=== PATIENT | female | born 1960 | race Caucasian/White ===

== ENCOUNTER → 2017-07-14 | Outpatient (CLI) | payer BC, OTHER ==
--- NOTE | 2017-07-15 10:44 | MM ---
Reason for exam: screening (asymptomatic). Last mammogram was performed 1 year and 7 months ago. History: Patient is postmenopausal. Family history of breast cancer in paternal aunt at age 60. Physical Findings: A clinical breast exam by your physician is recommended on an annual basis and results should be correlated with mammographic findings. MG 3D Screening Mammo W/Cad Bilateral CC and MLO view(s) were taken. Prior study comparison: December 20, 2015, bilateral MG 3d screening mammo w/cad. October 21, 2014, bilateral MG screening mammo w CAD. There are scattered fibroglandular densities. No significant changes when compared with prior studies. ASSESSMENT: Negative, BI-RAD 1 RECOMMENDATION: Routine screening mammogram of both breasts in 1 year.
== END | disposition home or self-care (01) ==
LOC: RADMAMWWP 14:41
PROVIDERS: ATTEND Family Medicine
DX: Z12.31 Encounter for screening mammogram for malignant neoplasm of breast (principal)
CPT/HCPCS: 77063; 77067

== ENCOUNTER → 2020-04-27 | Outpatient (CLI) | payer BC, OTHER ==
--- NOTE | 2020-04-28 15:00 | MM ---
Reason for exam: screening (asymptomatic). Last mammogram was performed 2 years and 9 months ago. History: Patient is postmenopausal. Family history of breast cancer in paternal aunt at age 60. Physical Findings: A clinical breast exam by your physician is recommended on an annual basis and results should be correlated with mammographic findings. MG 3D Screening Mammo W/Cad Bilateral CC and MLO view(s) were taken. Prior study comparison: July 14, 2017, bilateral MG 3d screening mammo w/cad. December 20, 2015, bilateral MG 3d screening mammo w/cad. There are scattered fibroglandular densities. No significant changes when compared with prior studies. ASSESSMENT: Benign, BI-RAD 2 RECOMMENDATION: Routine screening mammogram of both breasts in 1 year.
== END | disposition home or self-care (01) ==
LOC: RADMAMWWP 09:42
PROVIDERS: ATTEND Family Medicine
DX: Z12.31 Encounter for screening mammogram for malignant neoplasm of breast (principal)
CPT/HCPCS: 77063; 77067

== ENCOUNTER 2020-05-03 07:37 | Day surgery (SDC) | payer BC, OTHER ==
[2020-04-28 15:05] VITALS: BMI 27.1
[~2020-05-03 07:37] MED LIST: LACTATED RINGERS 1,000 ML IV SCH; LIDOCAINE 1% (10MG/ML) FOR IV START INTRADERMA PRN
[2020-05-03] MEDS ORDERED: LACTATED RINGERS 1,000 ML IV ONE (08:09)
[2020-05-03 08:14] VITALS: TEMP 97.3
[2020-05-03 08:22] LABS: Glucose,Whole Blood 142 mg/dL (75-99)
[2020-05-03] MEDS ORDERED: PROPOFOL 10 MG/ML 20 ML VIAL IV ONE (09:11)
[2020-05-03] MEDS ORDERED: LIDOCAINE 1% INJ 10MG/ML (20 ML MDV) ONE (09:11)
--- NOTE | 2020-05-03 09:11 | P.GSHP ---
History of Present Illness H&P Date: 05/03/20 CHIEF COMPLAINT: Colon screen HISTORY OF PRESENT ILLNESS: The patient is a 60-year-old female who presents for colon screen. Lower endoscopy was offered for further evaluation and management. PAST MEDICAL HISTORY: Please see list. PAST SURGICAL HISTORY: Please see list. MEDICATIONS: Please see list. ALLERGIES: Please see list. SOCIAL HISTORY: No illicit drug use FAMILY HISTORY: No reports of Crohn disease or ulcerative colitis. REVIEW OF ORGAN SYSTEMS: CONSTITUTIONAL: No reports of fevers or chills. PHYSICAL EXAM: VITAL SIGNS: Stable GENERAL: Well-developed pleasant in no acute distress. HEENT: No scleral icterus. Extraocular movements grossly intact. Moist buccal mucosa. NECK: Supple without lymphadenopathy. CHEST: Unlabored respirations. Equal bilateral excursions. CARDIOVASCULAR: Regular rate and rhythm. Distal 2+ pulses. ABDOMEN: Soft, nontender, nondistended. MUSCULOSKELETAL: No clubbing, cyanosis, or edema. ASSESSMENT: 1. Colon screen. PLAN: 1. Recommend proceeding with a lower endoscopy Past Medical History Past Medical History: Diabetes Mellitus Additional Past Medical History / Comment(s): Seasonal Allergies. Had a Shingles Vaccine 04/27/20. History of Any Multi-Drug Resistant Organisms: None Reported Past Surgical History: Hysterectomy Additional Past Surgical History / Comment(s): Buionectomy, right hand joint surgery, colonoscopy with polypectomy. Past Anesthesia/Blood Transfusion Reactions: No Reported Reaction Past Psychological History: No Psychological Hx Reported Smoking Status: Former smoker Past Alcohol Use History: Occasional Additional Past Alcohol Use History / Comment(s): Smoked occasionally, socially in the . Past Drug Use History: None Reported - Past Family History Father Family Medical History: Cancer Additional Family Medical History / Comment(s): Lung Cancer. Medications and Allergies Home Medications Medication Instructions Recorded Confirmed Type Cholecalciferol (Vitamin D3) 250 mcg PO DAILY 04/28/20 04/28/20 History [Vitamin D3] EPINEPHrine (Auto Inject) [Epipen] 0.3 mg IM ONCE PRN 04/28/20 04/28/20 History Insulin Detemir [Levemir Flextouch] 20 units SQ HS 04/28/20 04/28/20 History Loratadine [Claritin] 10 mg PO DAILY PRN 04/28/20 04/28/20 History Pnv No.95/Ferrous Fum/Folic AC 1 each PO DAILY 04/28/20 04/28/20 History [ Multivitamin Tablet] Allergies Allergy/AdvReac Type Severity Reaction Status Date / Time latex Allergy Rash/Hives Verified 04/28/20 15:09 perfume AdvReac Nausea Verified 04/28/20 15:09 sulfite AdvReac Nausea Verified 04/28/20 15:09 venom-wasp [wasp venom] AdvReac Rash/Hives Verified 04/28/20 15:09 chemical sensitivity AdvReac Nausea Uncoded 04/28/20 15:09 Surgical - Exam Vital Signs Temp Pulse Resp BP Pulse Ox 97.3 F L 79 18 136/87 99 05/03/20 08:13 05/03/20 08:13 05/03/20 08:13 05/03/20 08:13 05/03/20 08:13 Results - Labs Abnormal Lab Results - Last 24 Hours (Table) 05/03/20 Range/Units 08:20 POC Glucose (mg/dL) 142 H (75-99) mg/dL
--- NOTE | 2020-05-03 09:40 | P.PCN ---
Date of Procedure: 05/03/20 Description of Procedure: PREOPERATIVE DIAGNOSIS: Personal history colon polyps Colonoscopy screening. POSTOPERATIVE DIAGNOSIS: Personal history colon polyps Colonoscopy screening. Diverticulosis, scattered. OPERATION: Colonoscopy to the cecum, ileocecal valve and appendiceal orifice. SURGEON: Sona Ray MD. ANESTHESIA: MAC. INDICATIONS: The patient is a 60-year-old female who presents for colonoscopy screening. Last colonoscopy 5 years ago. Benefits and risks were described and informed consent was obtained. DESCRIPTION OF PROCEDURE: The patient had undergone Suprep. She had been brought into the operating room and laid in the left lateral decubitus position. After adequate intravenous sedation, the rectum was examined with 2% lidocaine jelly. No external hemorrhoids were encountered. The rectal tone was within normal limits. No lesions were palpated in the rectal vault. An Olympus colonoscope was advanced until the cecum, ileocecal valve and appendiceal orifice were clearly viewed. The prep was excellent. Scattered diverticulosis was encountered. No colonic polyps were found. No evidence of focal colitis was found. Retroflexion of the scope demonstrated grade 1 internal hemorrhoids without active bleeding or inflammation. The colon was desufflated. The patient had tolerated the procedure well. Withdrawal time was over 6 minutes. FINDINGS: Aronchick preparation quality scale 1 (1-5) Internal hemorrhoids, grade 1 No external prolapsed hemorrhoids. No arteriovenous malformations. No adenomatous polyps. No focal colitis. Scattered sigmoid diverticulosis RECOMMENDATIONS: Lower endoscopy in 5 years, 2024 Plan - Discharge Summary Discharge Rx Participant: No New Discharge Prescriptions: Continue EPINEPHrine (Auto Inject) [Epipen] 0.3 mg IM ONCE PRN PRN Reason: Anaphylaxis Loratadine [Claritin] 10 mg PO DAILY PRN PRN Reason: Allergic Reaction Pnv No.95/Ferrous Fum/Folic AC [ Multivitamin Tablet] 1 each PO DAILY Insulin Detemir [Levemir Flextouch] 20 units SQ HS Cholecalciferol (Vitamin D3) [Vitamin D3] 250 mcg PO DAILY Discharge Medication List Cholecalciferol (Vitamin D3) [Vitamin D3] 250 mcg PO DAILY 04/28/20 [History] EPINEPHrine (Auto Inject) [Epipen] 0.3 mg IM ONCE PRN 04/28/20 [History] Insulin Detemir [Levemir Flextouch] 20 units SQ HS 04/28/20 [History] Loratadine [Claritin] 10 mg PO DAILY PRN 04/28/20 [History] Pnv No.95/Ferrous Fum/Folic AC [ Multivitamin Tablet] 1 each PO DAILY 04/28/20 [History] Follow up Appointment(s)/Referral(s): Sona Ray MD [STAFF PHYSICIAN] - As Needed Patient Instructions/Handouts: *[facility] - (Anesthesia) Endoscopy Discharge Instructions, Diverticulosis (GEN), Diverticulosis Diet (GEN), Colonoscopy (DC) Activity/Diet/Wound Care/Special Instructions: Repeat colonoscopy 5 years, 2024 Discharge Disposition: HOME SELF-CARE
[2020-05-03 09:50] VITALS: BP 126/80; PULSE 70; RESP 18
== END 2020-05-03 10:10 | disposition home or self-care (01) ==
LOC: ORWHC2ENDO 07:37
PROVIDERS: ATTEND Surgery Plastic and Reconstructive Surgery
DX: Z12.11 Encounter for screening for malignant neoplasm of colon (principal); K57.30 Diverticulosis of large intestine without perforation or abscess without bleeding; K64.0 First degree hemorrhoids; Z86.010 Personal history of colon polyps; Z79.4 Long term (current) use of insulin; E11.9 Type 2 diabetes mellitus without complications; Z90.710 Acquired absence of both cervix and uterus; Z98.890 Other specified postprocedural states; Z87.891 Personal history of nicotine dependence; Z91.040 Latex allergy status; Z91.048 Other nonmedicinal substance allergy status; Z80.1 Family history of malignant neoplasm of trachea, bronchus and lung
CPT/HCPCS: J2001; J2704; G0105

== ENCOUNTER 2021-02-07 13:56 | Emergency (ER) | payer BC, OTHER ==
[2021-02-07] MEDS ORDERED: diphenhydrAMINE 50 MG/ML 1 ML VIAL IVP STA (16:38)
[2021-02-07] MEDS ORDERED: methylPREDNISolone SOD SUCCI 125 MG/2 ML VIAL IV STA (16:38)
[2021-02-07] MEDS ORDERED: FAMOTIDINE 20 MG/2 ML VIAL IV STA (16:38)
[2021-02-07] MEDS ORDERED: SODIUM CHLORIDE 0.9% 500 ML 500 ML IV STA (16:38)
--- NOTE | 2021-02-07 17:02 | ED ---
Allergic Reaction HPI - General Chief complaint: Allergic Reaction Stated complaint: Allergic Reaction Time Seen by Provider: 02/07/21 16:24 Source: patient, RN notes reviewed Mode of arrival: ambulatory Limitations: no limitations - History of Present Illness Initial Comments: Patient is a 60-year-old female that presents to emergency department compla ining of possible ALLERGIC reaction. She notes she was weed whacking when she had a mushroom and Soma flung into her mouth. She noted that she started to feel little bit nauseous and lightheaded so she called her who states that the mushroom is bad. They came to the emergency room for possible allergic reaction. Patient was otherwise a well appearing 60-year-old female in no apparent distress or pain. She notes that most of her symptoms have since resolved prior to arrival. She denied any chest pain shortness of breath headache nausea vomiting diarrhea constipation fever fatigue chills. - Related Data Home Medications Medication Instructions Recorded Confirmed Cholecalciferol (Vitamin D3) 250 mcg PO DAILY 04/28/20 04/28/20 [Vitamin D3 (5000 Iu)] EPINEPHrine (Auto Inject) [Epipen] 0.3 mg IM ONCE PRN 04/28/20 04/28/20 Insulin Detemir [Levemir Flextouch 20 units SQ HS 04/28/20 04/28/20 Pen] Loratadine [Claritin] 10 mg PO DAILY PRN 04/28/20 04/28/20 Pnv No.95/Ferrous Fum/Folic AC 1 each PO DAILY 04/28/20 04/28/20 [ Multivitamin Tablet] Allergies Allergy/AdvReac Type Severity Reaction Status Date / Time latex Allergy Rash/Hives Verified 02/07/21 14:07 perfume AdvReac Nausea Verified 02/07/21 14:07 sulfite AdvReac Nausea Verified 02/07/21 14:07 venom-wasp [wasp venom] AdvReac Rash/Hives Verified 02/07/21 14:07 chemical sensitivity AdvReac Nausea Uncoded 02/07/21 14:07 Review of Systems ROS Statement: Those systems with pertinent positive or pertinent negative responses have been documented in the HPI. ROS Other: All systems not noted in ROS Statement are negative. Past Medical History Past Medical History: Diabetes Mellitus Additional Past Medical History / Comment(s): Seasonal Allergies. Had a Shingles Vaccine 12/17/20. History of Any Multi-Drug Resistant Organisms: None Reported Past Surgical History: Hysterectomy Additional Past Surgical History / Comment(s): Buionectomy, right hand joint surgery, colonoscopy with polypectomy. Past Anesthesia/Blood Transfusion Reactions: No Reported Reaction Past Psychological History: No Psychological Hx Reported Smoking Status: Former smoker Past Alcohol Use History: Occasional Past Drug Use History: None Reported - Past Family History Father Family Medical History: Cancer Additional Family Medical History / Comment(s): Lung Cancer. General Exam Limitations: no limitations General appearance: alert, in no apparent distress Head exam: Present: atraumatic, normocephalic, normal inspection Eye exam: Present: normal appearance, PERRL, EOMI. Absent: scleral icterus, conjunctival injection, periorbital swelling ENT exam: Present: normal exam, mucous membranes moist Neck exam: Present: normal inspection Respiratory exam: Present: normal lung sounds bilaterally. Absent: respiratory distress, wheezes, rales, rhonchi, stridor Cardiovascular Exam: Present: regular rate, normal rhythm, normal heart sounds. Absent: systolic murmur, diastolic murmur, rubs, gallop, clicks Extremities exam: Present: normal inspection, full ROM, normal capillary refill. Absent: tenderness, pedal edema, joint swelling, calf tenderness Neurological exam: Present: alert, oriented X3 Psychiatric exam: Present: normal affect, normal mood Skin exam: Present: warm, dry, intact, normal color. Absent: rash Course Vital Signs 02/07/21 14:08 Temperature 98.2 F Pulse Rate 102 H Respiratory 20 Rate Blood Pressure 122/74 O2 Sat by Pulse 99 Oximetry Medical Decision Making - Medical Decision Making 60-year-old female with possible ALLERGIC reaction. 500 mL of normal saline, 20 mg of Pepcid, 50 mg of Benadryl, 125 mg of Solu- Medrol ordered. Patient is okay with discharge home after medications. Case discussed with Dr. Snowden, patient discharge home. Disposition Clinical Impression: Allergic reaction Disposition: HOME SELF-CARE Condition: Stable Instructions (If sedation given, give patient instructions): General Allergic Reaction (ED) Additional Instructions: Please return to the Emergency Department if symptoms worsen or any other concerns. Follow-up with primary care 1-2 days. Continue take Benadryl home as needed. Is patient prescribed a controlled substance at d/c from ED?: No Referrals: Jaskaran Gutierrez DO [Primary Care Provider] - 1-2 days Time of Disposition: 17:01
[2021-02-07 18:27] VITALS: BP 131/83; PULSE 83; RESP 16; TEMP 97.6
== END 2021-02-07 18:26 | disposition home or self-care (01) ==
LOC: EC 13:56
DX: T78.40XA Allergy, unspecified, initial encounter (principal); E11.9 Type 2 diabetes mellitus without complications; Z79.4 Long term (current) use of insulin; Z91.040 Latex allergy status; Z90.710 Acquired absence of both cervix and uterus; Z87.891 Personal history of nicotine dependence
CPT/HCPCS: 99283; 96374; 96375 ×2; 96361; J1200; J2930

== ENCOUNTER → 2022-03-25 | Outpatient (CLI) | payer BC, OTHER ==
--- NOTE | 2022-03-26 08:33 | MM ---
Reason for Exam: Screening (asymptomatic). Last mammogram was performed 1 year(s) and 11 month(s) ago. Patient History: Menarche at age 16. First Full-Term at age 23. Hysterectomy at age 37. Postmenopausal. Paternal aunt had breast cancer, age 60. Risk Values: Yue 5 year model risk: 1.1%. NCI Lifetime model risk: 6.2%. Prior Study Comparison: 12/20/2015 Bilateral Screening Mammogram, [facility]. 07/14/2017 Bilateral Screening Mammogram, [facility]. 04/27/2020 Bilateral Screening Mammogram, [facility]. Tissue Density: There are scattered fibroglandular densities. Findings: Analyzed By CAD. There are a few scattered tiny benign-appearing round calcifications bilaterally. There is no suspicious new group of microcalcifications or new suspicious mass in either breast. Overall Assessment: Benign, BI-RAD 2 Management: Screening Mammogram of both breasts in 1 year. A clinical breast exam by your physician is recommended on an annual basis and results should be correlated with mammographic findings. Electronically signed and approved by: Ladarius Valdez M.D.
== END | disposition home or self-care (01) ==
LOC: RADMAMWWP 08:14
PROVIDERS: ATTEND Family Medicine
DX: Z12.31 Encounter for screening mammogram for malignant neoplasm of breast (principal)
CPT/HCPCS: 77063; 77067

== ENCOUNTER 2023-04-25 18:16 | Emergency (ER) | payer BC, OTHER ==
[2023-04-25 19:04] VITALS: TEMP 97.9
[2023-04-25 19:44] LABS: Basophils % (A) 0 %; Eosinophils # (A) 0.1 k/uL (0-0.7); Eosinophils % (A) 1 %; HCT 41.9 % (34.0-46.0); HGB 13.7 gm/dL (11.4-16.0); Lymphocytes # (A) 1.6 k/uL (1.0-4.8); Lymphocytes % (A) 20 %; MCH 27.8 pg (25.0-35.0); MCHC 32.6 g/dL (31.0-37.0); MCV 85.3 fL (80.0-100.0); Mean Platelet Volume 7.3; Monocytes # (A) 0.5 k/uL (0-1.0); Monocytes % (A) 6 %; Neutrophils # (A) 5.9 k/uL (1.3-7.7); Neutrophils % (A) 72 %; Platelet Count 262 k/uL (150-450); RBC 4.91 m/uL (3.80-5.40); RDW 12.5 % (11.5-15.5); WBC 8.1 k/uL (3.8-10.6)
--- NOTE | 2023-04-25 19:53 | XR ---
EXAMINATION TYPE: XR chest 2V DATE OF EXAM: 04/25/2023 7:45 PM CLINICAL INDICATION:Female, 63 years old with history of Chest Pain; COMPARISON: Chest radiographs from 04/25/2023 TECHNIQUE: XR chest 2V Frontal and lateral views of the chest. FINDINGS: Lungs/Pleura: There is no evidence of pleural effusion, focal consolidation, or pneumothorax. Pulmonary vascularity: Unremarkable. Heart/mediastinum: Cardiomediastinal silhouette is unremarkable. Musculoskeletal: No acute osseous pathology. Remote appearing right rib fractures. IMPRESSION: No acute cardiopulmonary disease/process.
[2023-04-25 19:55] LABS: INR 0.9 (<1.2); Partial Thromboplastin Time 23.5 sec (22.0-30.0); Prothrombin Time 9.9 sec (10.0-12.5)
[2023-04-25 19:57] LABS: ALT 206 U/L (4-34); AST 401 U/L (14-36); African American GFR (CKD) >90 (>60 ml/min/1.73 sqM); Albumin 4.5 g/dL (3.5-5.0); Alkaline Phosphatase 197 U/L (38-126); Anion Gap 13 mmol/L; Blood Urea Nitrogen 20 mg/dL (7-17); Carbon Dioxide 26 mmol/L (22-30); Chloride 101 mmol/L (98-107); Glucose 139 mg/dL (74-99); Non-African American GFR(CKD) >90 (>60 ml/min/1.73 sqM); Potassium 4.2 mmol/L (3.5-5.1); Sodium 140 mmol/L (137-145); Total Bilirubin 1.3 mg/dL (0.2-1.3)
[2023-04-25 20:04] LABS: NT-Pro-B-Type Natriuretic Pept <20 pg/mL
--- NOTE | 2023-04-25 21:55 | US ---
EXAMINATION TYPE: US gallbladder DATE OF EXAM: 04/25/2023 COMPARISON: US, CT 2014 CLINICAL INDICATION: Female, 63 years old with history of RUQ pain; Pain x 5.5 hours. TECHNIQUE: Multiple sonographic images of the right upper quadrant are obtained. FINDINGS: EXAM MEASUREMENTS: Liver Length: 14.1 cm Gallbladder Wall: 0.28 cm CBD: 0.62 cm Right Kidney: 10.3 x 4.7 x 5.1 cm ATTENDANCE CLERK NOTES: Limited due to gas. Pancreas: Not well seen. Duct seen at pancreatic body measures 2 mm. Liver: Appears coarse in echotexture. Gallbladder: Hyperechoic material seen within the gallbladder which appears to be immobile seen near fundus: 2.4 x 2.2 x 0.5 cm. Low-level echogenic material also seen within the gallbladder: 6.3 x 2.7 x 0.6 cm. Evidence for sonographic Artis's sign: No CBD: Appears wnl Right Kidney: No hydronephrosis or masses seen. Slightly limited. IMPRESSION: Possible gallbladder wall mass versus tumefactive sludge. Consider further evaluation with MRI with I V contrast for complete evaluation.
[2023-04-25 22:41] VITALS: BP 132/82; PULSE 88; RESP 20
[2023-04-25] MEDS ORDERED: FAMOTIDINE 20 MG/2 ML VIAL IV STA (23:25)
[2023-04-25] MEDS ORDERED: methylPREDNISolone SOD SUCCI 125 MG/2 ML VIAL IV STA (23:25)
[2023-04-25] MEDS ORDERED: diphenhydrAMINE 50 MG/ML 1 ML VIAL IVP STA (23:25)
--- NOTE | 2023-04-25 23:26 | ED ---
General Adult HPI - General Chief complaint: Recheck/Abnormal Lab/Rx Stated complaint: Abn EKG Time Seen by Provider: 04/25/23 18:33 Source: patient Mode of arrival: ambulatory Limitations: no limitations - History of Present Illness Initial comments: Rosalva is a 63-year-old female who was sent to the ER today from urgent care. She reports that she had some right upper quadrant epigastric abdominal discomfort with nausea and diaphoresis. She went to an urgent care had an EKG which showed some tachycardia and they advised him to come the hospital to rule out this being her gallbladder or her heart. Patient states that the pain is somewhat improved. She still feel slightly nauseous. She has no cardiac history no history of hypertension hyperlipidemia, his medication control diabetes. - Related Data Home Medications Medication Instructions Recorded Confirmed Cholecalciferol (Vitamin D3) 250 mcg PO DAILY 04/28/20 04/28/20 [Vitamin D3 (5000 Iu)] EPINEPHrine (Auto Inject) [Epipen] 0.3 mg IM ONCE PRN 04/28/20 04/28/20 Insulin Detemir [Levemir Flextouch 20 units SQ HS 04/28/20 04/28/20 Pen] Loratadine [Claritin] 10 mg PO DAILY PRN 04/28/20 04/28/20 Pnv No.95/Ferrous Fum/Folic AC 1 each PO DAILY 04/28/20 04/28/20 [ Multivitamin Tablet] Allergies Allergy/AdvReac Type Severity Reaction Status Date / Time latex Allergy Rash/Hives Verified 04/25/23 18:26 perfume AdvReac Nausea Verified 04/25/23 18:26 sulfite AdvReac Nausea Verified 04/25/23 18:26 venom-wasp [wasp venom] AdvReac Rash/Hives Verified 04/25/23 18:26 chemical sensitivity AdvReac Nausea Uncoded 04/25/23 18:26 Review of Systems ROS Statement: Those systems with pertinent positive or pertinent negative responses have been documented in the HPI. ROS Other: All systems not noted in ROS Statement are negative. Past Medical History Past Medical History: Diabetes Mellitus Additional Past Medical History / Comment(s): Seasonal Allergies. Had a Shingles Vaccine 04/27/20. History of Any Multi-Drug Resistant Organisms: None Reported Past Surgical History: Hysterectomy Additional Past Surgical History / Comment(s): Buionectomy, right hand joint surgery, colonoscopy with polypectomy. Past Anesthesia/Blood Transfusion Reactions: No Reported Reaction Past Psychological History: No Psychological Hx Reported Smoking Status: Former smoker Past Alcohol Use History: Occasional Past Drug Use History: None Reported - Past Family History Father Family Medical History: Cancer Additional Family Medical History / Comment(s): Lung Cancer. General Exam Limitations: no limitations Head exam: Present: atraumatic Eye exam: Present: normal appearance Respiratory exam: Present: normal lung sounds bilaterally. Absent: respiratory distress Cardiovascular Exam: Present: regular rate, normal rhythm GI/Abdominal exam: Present: soft, tenderness, normal bowel sounds. Absent: guarding, rebound, rigid Rectal exam: Present: deferred External exam: Present: normal external exam Extremities exam: Present: normal inspection Back exam: Present: normal inspection. Absent: CVA tenderness (R), CVA tende rness (L) Neurological exam: Present: alert, oriented X3 Psychiatric exam: Present: normal affect, normal mood Skin exam: Present: warm, dry, intact Course Vital Signs 04/25/23 04/25/23 18:21 22:38 Temperature 97.9 F Pulse Rate 90 88 Respiratory 18 20 Rate Blood Pressure 141/83 132/82 O2 Sat by Pulse 98 98 Oximetry EKG Findings - EKG Comments: EKG Findings:: EKG interpreted by me, EKG obtained due to report of abnormal outpatient EKG, EKG obtained 1840 rate is 87 rhythm is sinus normal axis, normal intervals, [place] 171 QRS [address] QTC [address] elevations or depressions no evidence of acute ischemia infarction or arrhythmia Medical Decision Making - Medical Decision Making Was pt. sent in by a medical professional or institution (, PA, LIQUOR TESTER, urgent care, hospital, or penitentiary...) When possible be specific @ -Yes. from urgent care Did you speak to anyone other than the patient for history (EMS, parent, family, police, friend...)? What history was obtained from this source @ -No Did you review nursing and triage notes (agree or disagree)? Why? @ -I reviewed and agree with nursing and triage notes Were old charts reviewed (outside hosp., previous admission, EMS record, old EKG, old radiological studies, urgent care reports/EKG's, penitentiary records)? Report findings @ -Urgent care EKG was reviewed Differential Diagnosis (chest pain, altered mental status, abdominal pain women, abdominal pain men, vaginal bleeding, weakness, fever, dyspnea, syncope, headache, dizziness, GI bleed, back pain, seizure, CVA, palpatations, mental health)? @ -Differential Chest Pain: Stable Angina, Unstable Angina, STEMI, NSTEMI Aortic Dissection, Pneumothorax, Musculoskeletal, Esophageal Spasm GERD, Cholecystitis, Pancreatitis, Zoster, this is not meant to be an all-inclusive list. Differential Abdominal Pain Women: Appendicitis, Cholecystitis, diverticulosis, ischemic bowel, pancreatitis, he patitis, UTI, gastroenteritis, AAA, incarcerated hernia, bowel obstruction, constipation, inflammatory bowel, hepatitis, peptic ulcer disease, splenic infarction, perforated viscus, vulvitis, ovarian torsion, PID, kidney stone, placenta abruption, this is not meant to be an all-inclusive list EKG interpreted by me (3pts min.). @ -As above X-rays interpreted by me (1pt min.). @ -No acute process CT interpreted by me (1pt min.). @ -None done U/S interpreted by me (1pt. min.). @ - What testing was considered but not performed or refused? (CT, X-rays, U/S, labs)? Why? @ -CT was ordered but patient was not comfortable receiving premedications or contrast, outpatient MRI was recommended What meds were considered but not given or refused? Why? @ -None Did you discuss the management of the patient with other professionals (professionals i.e. , PA, LIQUOR TESTER, lab, RT, psych nurse, certified social workers in health care, inspector crystal, teacher, weapons officer naval activity, case finisher)? Give summary @ -No Was smoking cessation discussed for >3mins.? @ -No Was critical care preformed (if so, how long)? @ -No Were there social determinants of health that impacted care today? How? (Homelessness, low income, unemployed, alcoholism, drug addiction, transportation, low edu. Level, literacy, decrease access to med. care, mcc, rehab)? @ -No Was there de-escalation of care discussed even if they declined (Discuss DNR or withdrawal of care, Hospice)? DNR status @ -No What co-morbidities impacted this encounter? (DM, HTN, Smoking, COPD, CAD, Cancer, CVA, ARF, Chemo, Hep., AIDS, mental health diagnosis, sleep apnea, morbid obesity)? @ -None Was patient admitted / discharged? Hospital course, mention meds given and route, prescriptions, significant lab abnormalities, going to OR and other pertinent info. @ -Discharge The patient was seen and evaluated history was obtained from patient. Patient has no cardiac history she had an episode of epigastric abdominal pain with nausea and diaphoresis. These symptoms resolved she was evaluated in urgent care where she found to be somewhat tachycardic she was advised to come to the ER for further workup. Patient's labs resulted with transaminitis, her EKG was nonischemic her chest x-ray was normal her troponin was negative. Ultrasound of the gallbladder showed a possible polyp versus mass versus stone in a computed tomography scan was ordered however patient was not comfortable receiving contrast or premedication for contrast therefore declined the computed tomography scan. Patient was advised of her abnormal ultrasound test she is been a symptomatically throughout her stay in the ER was comfortable with plan for discharge home and outpatient follow-up. Patient was provided a disc with ultrasound images upon discharge Undiagnosed new problem with uncertain prognosis? @ -No Drug Therapy requiring intensive monitoring for toxicity (Heparin, Nitro, Insulin, Cardizem)? @ -No Were any procedures done? @ -No Diagnosis/symptom? @ Right upper quadrant abdominal pain, abnormal gallbladder ultrasound Acute, or Chronic, or Acute on Chronic? @ -Acute Uncomplicated (without systemic symptoms) or Complicated (systemic symptoms)? @ -default Side effects of treatment? @ -No Exacerbation, Progression, or Severe Exacerbation? @ -No Poses a threat to life or bodily function? How? (Chest pain, USA, CT, pneumonia, PE, COPD, DKA, ARF, appy, cholecystitis, CVA, Diverticulitis, Homicidal, Suicidal, threat to staff... and all critical care pts) @ -No - Lab Data Result diagrams: 04/25/23 19:17 04/25/23 19:17 Lab Results 04/25/23 04/25/23 04/25/23 Range/Units 19:17 19:17 19:17 WBC 8.1 (3.8-10.6) k/uL RBC 4.91 (3.80-5.40) m/uL Hgb 13.7 (11.4-16.0) gm/dL Hct 41.9 (34.0-46.0) % MCV 85.3 (80.0-100.0) fL MCH 27.8 (25.0-35.0) pg MCHC 32.6 (31.0-37.0) g/dL RDW 12.5 (11.5-15.5) % Plt Count 262 (150-450) k/uL MPV 7.3 Neutrophils % 72 % Lymphocytes % 20 % Monocytes % 6 % Eosinophils % 1 % Basophils % 0 % Neutrophils # 5.9 (1.3-7.7) k/uL Lymphocytes # 1.6 (1.0-4.8) k/uL Monocytes # 0.5 (0-1.0) k/uL Eosinophils # 0.1 (0-0.7) k/uL Basophils # 0.0 (0-0.2) k/uL PT 9.9 L (10.0-12.5) sec INR 0.9 (<1.2) APTT 23.5 (22.0-30.0) sec D-Dimer 0.44 (<0.60) mg/L FEU Sodium 140 (137-145) mmol/L Potassium 4.2 (3.5-5.1) mmol/L Chloride 101 (98-107) mmol/L Carbon Dioxide 26 (22-30) mmol/L Anion Gap 13 mmol/L BUN 20 H (7-17) mg/dL Creatinine 0.61 (0.52-1.04) mg/dL Est GFR (CKD-EPI)AfAm >90 (>60 ml/min/1.73 sqM) Est GFR (CKD-EPI)NonAf >90 (>60 ml/min/1.73 sqM) Glucose 139 H (74-99) mg/dL Calcium 10.0 (8.4-10.2) mg/dL Magnesium 2.0 (1.6-2.3) mg/dL Total Bilirubin 1.3 (0.2-1.3) mg/dL AST 401 H (14-36) U/L ALT 206 H (4-34) U/L Alkaline Phosphatase 197 H (38-126) U/L Troponin I (0.000-0.034) ng/mL NT-Pro-B Natriuret Pep <20 pg/mL Total Protein 8.0 (6.3-8.2) g/dL Albumin 4.5 (3.5-5.0) g/dL Lipase (23-300) U/L 04/25/23 04/25/23 Range/Units 19:17 20:59 WBC (3.8-10.6) k/uL RBC (3.80-5.40) m/uL Hgb (11.4-16.0) gm/dL Hct (34.0-46.0) % MCV (80.0-100.0) fL MCH (25.0-35.0) pg MCHC (31.0-37.0) g/dL RDW (11.5-15.5) % Plt Count (150-450) k/uL MPV Neutrophils % % Lymphocytes % % Monocytes % % Eosinophils % % Basophils % % Neutrophils # (1.3-7.7) k/uL Lymphocytes # (1.0-4.8) k/uL Monocytes # (0-1.0) k/uL Eosinophils # (0-0.7) k/uL Basophils # (0-0.2) k/uL PT (10.0-12.5) sec INR (<1.2) APTT (22.0-30.0) sec D-Dimer (<0.60) mg/L FEU Sodium (137-145) mmol/L Potassium (3.5-5.1) mmol/L Chloride (98-107) mmol/L Carbon Dioxide (22-30) mmol/L Anion Gap mmol/L BUN (7-17) mg/dL Creatinine (0.52-1.04) mg/dL Est GFR (CKD-EPI)AfAm (>60 ml/min/1.73 sqM) Est GFR (CKD-EPI)NonAf (>60 ml/min/1.73 sqM) Glucose (74-99) mg/dL Calcium (8.4-10.2) mg/dL Magnesium (1.6-2.3) mg/dL Total Bilirubin (0.2-1.3) mg/dL AST (14-36) U/L ALT (4-34) U/L Alkaline Phosphatase (38-126) U/L Troponin I <0.012 (0.000-0.034) ng/mL NT-Pro-B Natriuret Pep pg/mL Total Protein (6.3-8.2) g/dL Albumin (3.5-5.0) g/dL Lipase 87 (23-300) U/L Disposition Clinical Impression: RUQ pain, Transaminitis, Abnormal US (ultrasound) of abdomen Disposition: HOME SELF-CARE Condition: Stable Additional Instructions: As discussed there was an abnormality on your gallbladder ultrasound which could be a stone, a polyp or a mass. He needed additional testing of the gallbladder likely an MRI. He can follow up with her primary care for this. He have any worsening abdominal pain nausea vomiting jaundice seemed to come back to the ER immediately. Is patient prescribed a controlled substance at d/c from ED?: No Referrals: [facility],Clinic [Primary Care Provider] - 1-2 days
== END 2023-04-26 00:50 | disposition home or self-care (01) ==
LOC: EC 18:16
DX: R10.11 Right upper quadrant pain (principal); R74.01 Elevation of levels of liver transaminase levels; R93.5 Abnormal findings on diagnostic imaging of other abdominal regions, including retroperitoneum; R00.0 Tachycardia, unspecified; E11.9 Type 2 diabetes mellitus without complications; Z79.4 Long term (current) use of insulin; Z87.891 Personal history of nicotine dependence; Z91.040 Latex allergy status; Z91.038 Other insect allergy status; Z88.2 Allergy status to sulfonamides; Z91.09 Other allergy status, other than to drugs and biological substances
CPT/HCPCS: 36415; 71046; 76705; 80053; 83690; 83735; 83880; 84484; 85025; 85379; 85610; 85730; 93005; 99285

== ENCOUNTER → 2024-01-05 | Outpatient (CLI) | payer BC, OTHER ==
--- NOTE | 2024-01-18 12:18 | MM ---
Reason for Exam: Screening (asymptomatic). Last mammogram was performed 1 year(s) and 9 month(s) ago. Patient History: Menarche at age 16. First Full-Term at age 23. Hysterectomy at age 37. Postmenopausal. Paternal aunt had breast cancer, age 60. Risk Values: Yue 5 year model risk: 1.2%. NCI Lifetime model risk: 5.8%. Prior Study Comparison: 07/14/2017 Bilateral Screening Mammogram, [facility]. 04/27/2020 Bilateral Screening Mammogram, [facility]. 03/25/2022 Bilateral MG 3D screening mammo w/cad, [facility]. Tissue Density: There are scattered areas of fibroglandular density. Findings: Analyzed By CAD. Right breast: There is no suspicious group of microcalcifications or new suspicious mass. Left breast: There is no suspicious group of microcalcifications or new suspicious mass. Right breast: Asymmetry anterior depth CC view 28 mm from the nipple measuring 8 mm. Left breast: There is no suspicious group of microcalcifications or new suspicious mass. Overall Assessment: Incomplete: need additional imaging evaluation, BI-RAD 0 Management: Diagnostic Mammogram of the right breast. [facility] will attempt to contact patient to return for supplemental views and ultrasound if indicated. Patient should continue monthly self-breast exams. A clinical breast exam by your physician is recommended on an annual basis. This exam should not preclude additional follow-up of suspicious palpable abnormalities. Note on Yue scores and lifetime risk: 1. A Yue score greater than 3% is considered moderate risk. If this is the case, consider specialist referral to assess eligibility for a risk reducing agent. 2. If overall lifetime risk for the development of breast cancer is 20% or higher, the patient may qualify for future screening with alternating mammogram and breast MRI. Electronically signed and approved by: Shahzad Schofield DO
== END | disposition home or self-care (01) ==
LOC: RADMAMWWP 13:34
PROVIDERS: ATTEND Family Medicine
DX: Z12.31 Encounter for screening mammogram for malignant neoplasm of breast
CPT/HCPCS: 77063; 77067

== ENCOUNTER → 2024-01-28 | Outpatient (CLI) | payer BC, OTHER ==
--- NOTE | 2024-01-28 09:31 | MM ---
Reason for Exam: Additional evaluation requested from abnormal screening. Last screening mammogram was performed less than 1 month ago. Patient History: Menarche at age 16. First Full-Term at age 23. Hysterectomy at age 37. Postmenopausal. Paternal aunt had breast cancer, age 60. Risk Values: Yue 5 year model risk: 1.2%. NCI Lifetime model risk: 5.8%. Tissue Density: Right: There are scattered areas of fibroglandular density. Findings: Analyzed By CAD. Pattern is stable. No persistent suspicious nodularity or focal asymmetry is identified. Impression no persistent suspicious distortion. Medial lateral view is unremarkable. There is benign-appearing calcification in the anterior right breast. No suspicious groups of microcalcifications, spiculated or lobular masses, architectural distortion or other secondary signs of malignancy are mammographically apparent. Overall Assessment: Probably benign, BI-RAD 3 Management: Diagnostic Mammogram of the right breast in 6 months. A negative mammogram report should not preclude additional follow up of suspicious palpable abnormalities. Patient should continue monthly self breast exam. A clinical breast exam by your physician is recommended on an annual basis and results should be correlated with mammographic findings. Note on Yue scores and lifetime risk: 1. A Yue score greater than 3% is considered moderate risk. If this is the case, consider specialist referral to assess eligibility for a risk reducing agent. 2. If overall lifetime risk for the development of breast cancer is 20% or higher, the patient may qualify for future screening with alternating mammogram and breast MRI. [facility], , 01/28/2024 9:28 AM. Electronically signed and approved by: Giorgio Mcgovern D.O. Radiologis
== END | disposition home or self-care (01) ==
LOC: RADMAMWWP 08:21
PROVIDERS: ATTEND Family Medicine
DX: R92.8 Other abnormal and inconclusive findings on diagnostic imaging of breast
CPT/HCPCS: 77061; 77065

== ENCOUNTER → 2024-07-30 | Outpatient (CLI) | payer BC, OTHER ==
--- NOTE | 2024-07-30 12:05 | MM ---
Reason for Exam: Follow-up at short interval from prior study. Last screening mammogram was performed 7 month(s) ago. Patient History: Menarche at age 16. First Full-Term at age 23. Hysterectomy at age 37. Postmenopausal. Paternal aunt had breast cancer, age 60. Risk Values: Yue 5 year model risk: 1.2%. NCI Lifetime model risk: 5.7%. Prior Study Comparison: 04/27/2020 Bilateral Screening Mammogram, [facility]. 03/25/2022 Bilateral MG 3D screening mammo w/cad, [facility]. 01/05/2024 Bilateral MG 3D screening mammo w/cad, [facility]. 01/28/2024 Right MG 3D work up w/cad RT, [facility]. Tissue Density: There are scattered areas of fibroglandular density. Findings: Analyzed By CAD. There are a few scattered and grouped tiny benign appearing round calcifications bilaterally redemonstrated. Benign vascular calcification in the left breast is again seen. No suspicious new mass or distortion in either breast. Overall Assessment: Benign, BI-RAD 2 Management: Screening Mammogram of both breasts in 1 year. Return to routine follow-up.. Results were given to the patient verbally at the time of exam. Patient should continue monthly self-breast exams. A clinical breast exam by your physician is recommended on an annual basis. This exam should not preclude additional follow-up of suspicious palpable abnormalities. Note on Yue scores and lifetime risk: 1. A Yue score greater than 3% is considered moderate risk. If this is the case, consider specialist referral to assess eligibility for a risk reducing agent. 2. If overall lifetime risk for the development of breast cancer is 20% or higher, the patient may qualify for future screening with alternating mammogram and breast MRI. [facility], , 07/30/2024 11:52 AM. Electronically signed and approved by: Ladarius Valdez M.D.
== END | disposition home or self-care (01) ==
LOC: RADMAMWWP 11:16
PROVIDERS: ATTEND Family Medicine
DX: R92.1 Mammographic calcification found on diagnostic imaging of breast (principal); R92.323 Mammographic fibroglandular density, bilateral breasts; Z78.0 Asymptomatic menopausal state; Z80.3 Family history of malignant neoplasm of breast
CPT/HCPCS: 77062; 77066